=== PATIENT | male | born 1960 | race Caucasian/White ===

== ENCOUNTER 2018-10-29 07:37 | Emergency (ER) | payer BC ==
[2018-10-29 07:54] VITALS: BP 145/76
--- NOTE | 2018-10-29 08:07 | UC ---
Skin Complaint HPI - HPI Summary HPI Summary: 58 yo male presents with bee stings. He tells me that on 10/25 he was working outdoors and was stung in the left arm, upper chest, and neck several times by a wasp. He took benadryl and applied ice to the areas. All of them have resolved except for one area on his left forearm which is red and swollen still. Warm to touch with itching and slight pain. Denies hx of allergic rxn to bees. No facial or throat swelling. - History of Current Complaint Chief Complaint: UCSkin Time Seen by Provider: 10/29/18 08:07 Stated Complaint: WESP STING LT FORE ARM Hx Obtained From: Patient Onset/Duration: Sudden Onset Onset Severity: Mild Current Severity: Mild Pain Intensity: 3 Pain Scale Used: 0-10 Numeric - Allergy/Home Medications Allergies/Adverse Reactions: Allergies Allergy/AdvReac Type Severity Reaction Status Date / Time No Known Allergies Allergy Verified 10/29/18 07:54 PMH/Surg Hx/FS Hx/Imm Hx - Additional Past Medical History Additional PMH: None - Surgical History Surgical History: None - Family History Known Family History: Positive: Non-Contributory - Social History Occupation: Employed Full-time Lives: With Family Alcohol Use: Occasionally Substance Use Type: None Smoking Status (MU): Never Smoked Tobacco Review of Systems All Other Systems Reviewed And Are Negative: Yes Constitutional: Positive: Negative Skin: Positive: Other - bee sting left arm Respiratory: Positive: Negative Cardiovascular: Positive: Negative Neurovascular: Positive: Negative Neurological: Positive: Negative Psychological: Positive: Negative Physical Exam - Summary Physical Exam Summary: GENERAL: NAD. WDWN. No pain distress. SKIN: LEFT FOREARM: Volar aspect with 3.0cm diameter area of mild erythema, edema, and warmth. No open wounds, streaking, drainage, or abscess. NECK: Supple. Nontender. No lymphadenopathy. CHEST: No accessory muscle use. Breathing comfortably and in no distress. CV: Pulses intact. Cap refill <2seconds NEURO: Alert. PSYCH: Age appropriate behavior. Triage Information Reviewed: Yes Vital Signs: Initial Vital Signs Temp 97.7 F 10/29/18 07:49 Pulse 88 10/29/18 07:49 Resp 20 10/29/18 07:49 BP 145/76 10/29/18 07:49 Pulse Ox 98 10/29/18 07:49 Vital Signs Reviewed: Yes Course/Dx - Course Course Of Treatment: Suspect cellulitis s/p bee sting. Will treat with keflex - Diagnoses Provider Diagnosis: Cellulitis Discharge - Sign-Out/Discharge Documenting (check all that apply): Patient Departure All imaging exams completed and their final reports reviewed: No Studies - Discharge Plan Condition: Stable Disposition: HOME Prescriptions: Cephalexin CAP* [Keflex CAP*] 500 mg PO TID #15 cap Patient Education Materials: Insect Bite or Sting (ED) Referrals: Nicolás Tariq MD [Primary Care Provider] - Additional Instructions: If you develop a fever, shortness of breath, chest pain, new or worsening symptoms - please call your PCP or go to the ED immediately. Your blood pressure was slightly elevated at todays visit. Please see your primary provider within 4 weeks for recheck and re-evaluation. - Billing Disposition and Condition Condition: STABLE Disposition: Home
== END 2018-10-29 08:19 | disposition home or self-care (01) ==
LOC: UCEAST 07:37
DX: L03.114 Cellulitis of left upper limb (principal)
CPT/HCPCS: 99212; G0463

== ENCOUNTER 2018-11-14 10:25 | Observation (INO) | payer BC ==
[2018-11-14 11:18] LABS: ABS Basophils 0.1 10^3/ul (0-0.2); ABS Lymphocytes 0.7 10^3/ul (1.0-4.8); ABS Monocytes 1.1 10^3/ul (0-0.8); ABS Neutrophils 11.3 10^3/ul (1.5-7.7); Eosinophil % 0.1 %; Hematocrit 43 % (42-52); Hemoglobin 14.4 g/dL (14.0-18.0); Mean Corpuscular HGB Conc 34 g/dL (31-36); Mean Corpuscular Hemoglobin 30 pg (27-31); Mean Corpuscular Volume 89 fL (80-94); Nucleated Red Blood Cells % 0.1; Platelet Count 271 10^3/uL (150-450); Red Cell Distribution Width 13 % (10-15); White Blood Count 13.1 10^3/uL (3.5-10.8)
[2018-11-14 11:24] LABS: INR 1.05 (0.82-1.09)
[2018-11-14 11:37] LABS: Albumin 4.4 g/dL (3.2-5.2); Albumin/Globulin Ratio 1.4 (1-3); BUN/Creatinine Ratio 19.8 (8-20); Calcium 9.2 mg/dL (8.6-10.3); EGFR African American 104.3 (>60); EGFR Non-African American 86.2 (>60); Globulin 3.2 g/dL (2-4); Total Bilirubin 0.9 mg/dL (0.2-1.0); Total Protein 7.6 g/dL (6.4-8.9)
--- NOTE | 2018-11-14 11:50 | ED ---
HPI Chest Pain - HPI Summary HPI Summary: A 58 y/o male presents to [facility] with a chief complaint of throbbing chest pain when taking deep breaths after working out yesterday. He rates his pain as a 2/ 10 laying down and a 4/10 when taking a deep breath. He says that he only has the pain when taking a deep breath or bending over. He denies any fevers. He denies a Hx of blood clots. He denies any smoking or drug use but reports drinking 1 beer per week. He denies a Hx of DM or HTN. He says that his cholesterol is on the edge of being high but he does not take any medications for it. He says that his father passed due to cardiac complications when he was 68 y/o. - History of Current Complaint Chief Complaint: EDChestPainROMI Time Seen by Provider: 11/14/18 11:41 Hx Obtained From: Patient Onset/Duration: Started Days Ago, Still Present Timing: Intermittent - when taking deep breaths Initial Severity: Mild Current Severity: Mild Pain Intensity: 2 Pain Scale Used: 0-10 Numeric Chest Pain Location: Diffuse Chest Pain Radiates: No Character: Other: - throbbing Aggravating Factor(s): Deep Breaths, Other: - bending over Alleviating Factor(s): Nothing Associated Signs and Symptoms: Negative: Fever - Allergy/Home Medications Allergies/Adverse Reactions: Allergies Allergy/AdvReac Type Severity Reaction Status Date / Time No Known Allergies Allergy Verified 11/14/18 12:04 Home Medications: Home Medications Aspirin [Aspirin EC] 81 mg PO DAILY PRN 11/14/18 [History Confirmed 11/14/18] PMH/Surg Hx/FS Hx/Imm Hx Endocrine/Hematology History: Denies: Hx Diabetes, Hx Thyroid Disease Cardiovascular History: Denies: Hx Hypertension Respiratory History: Denies: Hx Asthma, Hx Chronic Obstructive Pulmonary Disease (COPD) GI History: Denies: Hx Ulcer Infectious Disease History: No Infectious Disease History: Reports: Hx Shingles Denies: Hx Hepatitis, Hx Human Immunodeficiency Virus (HIV), Traveled Outside the [place] in Last 30 Days - Family History Known Family History: Positive: Non-Contributory - Social History Alcohol Use: Occasionally Substance Use Type: Reports: None Smoking Status (MU): Never Smoked Tobacco Review of Systems Negative: Fever Positive: Chest Pain All Other Systems Reviewed And Are Negative: Yes Physical Exam - Summary Physical Exam Summary: GENERAL: Patient is a well-developed and nourished M who is lying comfortable in the stretcher. Patient is not in any acute respiratory distress. HEAD AND FACE: Normocephalic EYES: PERRLA, EOMI x 2. EARS: Hearing grossly intact. MOUTH: Oropharynx within normal limits. NECK: Supple, trachea is midline, no adenopathy, no JVD, no carotid bruit. CHEST: Symmetric, no tenderness at palpation LUNGS: Clear to auscultation bilaterally. No wheezing or crackles. CVS: Regular rate and rhythm, S1 and S2 present, no murmurs or gallops appreciated. ABDOMEN: Soft, non-tender. Bowel sounds are normal. No abnormal abdominal pulsations. EXTREMITIES: Full ROM in all major joints, no edema, no cyanosis or clubbing. NEURO: Alert and oriented x 3. No acute neurological deficits. Speech is normal and follows commands. SKIN: Dry and warm Triage Information Reviewed: Yes Vital Signs On Initial Exam: Initial Vitals Temp Pulse Resp BP Pulse Ox 98.2 F 106 16 136/87 100 11/14/18 10:44 11/14/18 10:44 11/14/18 10:44 11/14/18 10:44 11/14/18 10:44 Vital Signs Reviewed: Yes Diagnostics - Vital Signs Vital Signs Temp Pulse Resp BP Pulse Ox 11/14/18 10:44 98.2 F 106 16 136/87 100 - Laboratory Lab Results: Lab Results 11/14/18 11/14/18 11/14/18 Range/Units 11:03 11:03 11:03 WBC 13.1 H (3.5-10.8) 10^3/uL RBC 4.80 (4.18-5.48) 10^6 /uL Hgb 14.4 (14.0-18.0) g/dL Hct 43 (42-52) % MCV 89 (80-94) fL MCH 30 (27-31) pg MCHC 34 (31-36) g/dL RDW 13 (10-15) % Plt Count 271 (150-450) 10^3/uL MPV 8.0 (7.4-10.4) fL Neut % (Auto) 86.0 % Lymph % (Auto) 5.0 % Mcminn % (Auto) 8.3 % Eos % (Auto) 0.1 % Baso % (Auto) 0.6 % Absolute Neuts (auto) 11.3 H (1.5-7.7) 10^3/ul Absolute Lymphs (auto) 0.7 L (1.0-4.8) 10^3/ul Absolute Monos (auto) 1.1 H (0-0.8) 10^3/ul Absolute Eos (auto) 0.0 (0-0.6) 10^3/ul Absolute Basos (auto) 0.1 (0-0.2) 10^3/ul Absolute Nucleated RBC 0.0 10^3/ul Nucleated RBC % 0.1 INR (Anticoag Therapy) 1.05 (0.82-1.09) Sodium 138 (135-145) mmol/L Potassium 4.0 (3.5-5.0) mmol/L Chloride 106 (101-111) mmol/L Carbon Dioxide 25 (22-32) mmol/L Anion Gap 7 (2-11) mmol/L BUN 18 (6-24) mg/dL Creatinine 0.91 (0.67-1.17) mg/dL Est GFR ( Amer) 104.3 (>60) Est GFR (Non-Af Amer) 86.2 (>60) BUN/Creatinine Ratio 19.8 (8-20) Glucose 105 H (70-100) mg/dL Calcium 9.2 (8.6-10.3) mg/dL Total Bilirubin 0.90 (0.2-1.0) mg/dL AST 17 (13-39) U/L ALT 18 (7-52) U/L Alkaline Phosphatase 69 (34-104) U/L Troponin I 0.00 (<0.04) ng/mL Total Protein 7.6 (6.4-8.9) g/dL Albumin 4.4 (3.2-5.2) g/dL Globulin 3.2 (2-4) g/dL Albumin/Globulin Ratio 1.4 (1-3) Result Diagrams: 11/14/18 11:03 11/14/18 11:03 Lab Statement: Any lab studies that have been ordered have been reviewed, and results considered in the medical decision making process. - Radiology CXR Radiology Interpretation Completed By: Radiologist Summary of Radiographic Findings: NO EVIDENCE FOR ACTIVE CARDIOPULMONARY DISEASE. ED physician has reviewed this imaging report. - EKG 10:30 Cardiac Rate: Tachycardia - 105 bpm EKG Rhythm: Sinus Tachycardia Summary of EKG Findings: EKG at 10:30 showed sinus tachycardia at 105 bpm, normal axis. Re-Evaluation - Re-Evaluation First Eval Re-Evaluation Time: 13:26 Change: Unchanged Comment: Discussed results and plan. Chest Pain Course/Dx - Course Course Of Treatment: A 58 y/o male presents to [facility] with a chief complaint of throbbing chest pain when taking deep breaths after working out yesterday. The physical exam was unremarkable. EKG at 10:30 showed sinus tachycardia at 105 bpm , normal axis. Blood work and chemistries obtained and are WNL. CXR impression: NO EVIDENCE FOR ACTIVE CARDIOPULMONARY DISEASE. In the ED course the patient was given Aspirin PO, NTG SL and Sodium Chloride IV. The patient will be admitted. Case discussed with hospitalist, Dr. Valdivia. I discussed results with patient. The patient agrees with this plan. - Diagnoses Provider Diagnoses: Chest pain - Provider Notifications Discussed Care Of Patient With: Elda Valdivia Time Discussed With Above Provider: 13:59 Instructed by Provider To: Admit As Inpatient Discharge - Sign-Out/Discharge Documenting (check all that apply): Patient Departure - admit Patient Received Moderate/Deep Sedation with Procedure: No - Discharge Plan Condition: Fair Disposition: ADMITTED TO [facility] - Billing Disposition and Condition Condition: FAIR Disposition: Admitted to [facility] - Attestation Statements Document Initiated by Baldoibe: Yes Documenting Scribe: Eric Mcmahon Provider For Whom Javon is Documenting (Include Credential): Jim Laurent MD Scribe Attestation: Eric Gallardo, scribed for Jim Laurent MD on 11/14/18 at 1616. Scribe Documentation Reviewed: Yes Provider Attestation: The documentation as recorded by the Eric peralta accurately reflects the service I personally performed and the decisions made by me, Nini Laurent MD Status of Scribe Document: Viewed
[2018-11-14 11:57] LABS: Activated Partial Thrombo Time 33.2 seconds (26.0-38.0)
[2018-11-14 12:07] LABS: C Reactive Protein 7.59 mg/L (<8.01)
[2018-11-14] MEDS ORDERED: Nitroglycerin TAB 0.4 MG* 0.4 MG TAB SL ONE (13:16)
[2018-11-14] MEDS ORDERED: NS 0.9% 1000 ML** 1,000 ML IV ONE (13:42)
[2018-11-14] MEDS ORDERED: Aspirin 81 mg CHEW TAB* 81 MG TAB.CHEW PO ONE (13:56)
[2018-11-14] MEDS ORDERED: Acetaminophen TAB* 325 MG PO PRN (15:22)
[2018-11-14 16:11] LABS: TSH (Thyroid Stimulating Horm) 0.64 mcIU/mL (0.34-5.60)
--- NOTE | 2018-11-14 18:08 | HP ---
CC: Dr. Nicloás Tariq * HISTORY AND PHYSICAL: DATE OF ADMISSION: 11/14/18 PRIMARY CARE PROVIDER: Nicolás Tariq MD ATTENDING PHYSICIAN: Elda Villagran MD * (dictated by KATHERINE Mahmood) CHIEF COMPLAINT: Chest pain. HISTORY OF PRESENT ILLNESS: Mr. Yen is a 58-year-old male with no past medical history who presented to the ER today with complaints of chest pain. He states that he went to the gym last night, did weightlifting that involved bench pressing, triceps, etc., and then did 10 minutes of cardio on an indoor bicycle. He went home and later in the evening started to have a middle to left upper chest pain. He states that the pain is dull and constant except with deep breathing or bending forward when the pain becomes throbbing. He went to bed and woke and continues to have this pain. He denies diaphoresis, shortness of breath. He denies cough, fever, chills, sweats. He denies abdominal pain, nausea, vomiting, diarrhea, constipation. He denies changes in urination. He denies numbness and tingling in the extremities. He denies vision changes, headaches, dizziness, lightheadedness, presyncope, syncope. He notes that he was performing upper extremity weightlifting prior to the episode, but had no chest pain with exertion. He also notes that he was shoveling dirt on Monday. He currently rates his pain as 4/10. In the ER, the patient received a full workup, which included laboratory data showing leukocytosis. The patient received an ECG, which showed sinus tachycardia with a rate of 105, no ST changes. Chest x-ray was negative for cardiopulmonary disease. The patient received nitro in the ER. He notes that his pain was relieved for approximately 10 minutes with nitro, but that it caused dizziness and tingling in bilateral hands. Hospitalist team was asked to evaluate the patient for admission. PAST MEDICAL HISTORY: None. The patient's last physical was with his primary care, Dr. Tariq approximately 1 year ago. He has a followup appointment scheduled for November of this year. PAST SURGICAL HISTORY: None. HOME MEDICATIONS: Tylenol PM p.r.n. DRUG ALLERGIES: No known drug allergies. FAMILY HISTORY: Father at the age of 66 from complications of valvular disease, heart disease; the patient is unsure of the specifics. Mother has thyroid disease. Paternal grandmother had diabetes. No family history of CVA or cancer. SOCIAL HISTORY: The patient denies current or former use of tobacco. He drinks 1 to 2 drinks per week. He does not use any illicit drugs. 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 He is with 2 children who he lives with. He is relatively active exercising approximately 1-1/2 hours per week, not including staying active with his children. In the event that he is unable to make his own medical decision, he has appointed his to be his surrogate decision maker. REVIEW OF SYSTEMS: A 10-point review of systems has been performed and all the pertinent positives and negatives are in the HPI. All other systems are negative. PHYSICAL EXAMINATION GENERAL: Mr. Yen is a well developed, well nourished, middle-aged male who appears younger than his stated age. He is healthy, normal weight. He is in no acute distress. VITAL SIGNS: Temperature 98.2 temporal, heart rate 97, respiratory rate 20, oxygen saturation 98% on room air, blood pressure 126/81. HEENT: Visual esparza grossly intact. PERRL, EOMI, nonicteric sclerae. Hearing grossly intact. Oral mucous membranes are moist and without lesions. Tongue is at midline. RESPIRATORY: Symmetrical chest expansion without use of accessory muscles. LUNGS: Clear to auscultation bilaterally without rhonchi, wheezes, or rales. Chest wall is nontender to palpation. There is no digital clubbing or cyanosis. CARDIOVASCULAR: Regular rate and rhythm with S1, S2 present without murmurs, rubs, clicks, or gallops. There is no JVD. There is no peripheral edema. Radial and pedal pulses are palpable. ABDOMEN: Flat, bowel sounds in all quadrants. The abdomen is soft without tenderness to palpation. There is no hepatosplenomegaly. MUSCULOSKELETAL: Full range of motion without pain or deformities. NEURO: The patient is awake. He is alert and oriented x3 with no focal neurological deficits. He is able to move all of his extremities with a motor strength of 5/5 in upper and lower extremities. DIAGNOSTIC STUDIES/LAB DATA: WBC 13.1. Glucose 105. Troponin 0.00 x2. ECG: Rate 105, sinus tachycardia, no ST changes. Chest x-ray, impression: No evidence for active cardiopulmonary disease. ASSESSMENT AND PLAN: Mr. Yen is a 58-year-old male with no past medical history who presented to the ER today with complaints of chest pain. The patient will be admitted observation for: 1. Chest pain, rule out acute coronary syndrome. The patient has negative troponins x2. There are no acute ST changes on ECG. He continues to have chest pain that is worsened with deep breathing and bending over. He is an active male whose chest pain developed shortly after upper body weightlifting. This sounds like atypical chest pain. It appears to be musculoskeletal in nature, although there is no tenderness to palpation. Due to the concerning family history of heart disease where his father at the age of 66, we will pursue cardiac workup. The patient has taken aspirin today already. He will continue aspirin 81 mg in the morning. Troponins will continue to be trended. Risk stratification will be pursued with hemoglobin A1c and lipid panel. TSH has been ordered. Stress test has been ordered for the a.m. Meanwhile, Tylenol has been ordered p.r.n. pain. 2. FEN. Heart healthy diet with n.p.o. after midnight. There were no IV fluids. 3. DVT prophylaxis. According to the DVT Risk Assessment, the patient's scores 1 placing him at low risk. Ambulation, ad ines. 4. Code status. Full code. TIME SPENT: Approximately 45 minutes was spent on this admission, greater than half of that time was spent with the patient and his obtaining history, performing physical, and reviewing the plan of care. The case has been reviewed with my attending, Dr. Villagran, who is in agreement with the plan of care. KATHERINE WOLF [id number]/[facility] #: [id number] SOHA
[2018-11-15 07:00] LABS: HDL Cholesterol 56.4 mg/dL
[2018-11-15] MEDS ORDERED: Aspirin 81 mg CHEW TAB* 81 MG TAB.CHEW PO SCH (09:00)
[2018-11-15 13:00] LABS: Hepatitis C Antibody Negative (Negative)
[2018-11-15] MEDS ORDERED: Ibuprofen TAB* 600 MG PO ONE (13:05)
[2018-11-15 13:45] LABS: C Reactive Protein 63.35 mg/L (<8.01)
[2018-11-15] MEDS ORDERED: Colchicine* 0.6 MG TAB PO ONE (16:21)
[2018-11-15 16:44] VITALS: BP 143/79
--- NOTE | 2018-11-15 18:41 | DS ---
Resident Discharge Summary Discharge Summary: Date of Admission: 11/14/18 Date of Discharge: 11/15/2016 Admitting MD: Elda Valdivia MD Attending MD: Irish Pineda MD Primary Care Physician: Nicolás Tariq MD Home Medications Colchicine [Mitigare] 0.6 mg PO DAILY #30 cap 11/15/18 [Rx] Ibuprofen 600 mg PO TID #90 tablet 11/15/18 [Rx] Disposition: Home Condition: Good Primary Diagnosis: 1. Acute Pericarditis(viral). Diagnostic Imaging: Stress Echo: Pending by the time of discharge. Verbal discussion with mounter flutes and piccolos randolph; Normal. Pertinent Laboratory Results: WBC: 13.1 with neutrophilic predominance HbA1c: 5.7 CRP: 63.35 Troponin: Negative for 3 times. Hospital Course: Mr. Yen is a 58-year-old male, otherwise healthy who presented to the ER with complaints of chest pain. He states that he went to the gym last night, did weightlifting that involved bench pressing, triceps, etc., and then did 10 minutes of cardio on an indoor bicycle. He went home and later in the evening started to have a middle to left upper chest pain. He states that the pain is dull and constant except with deep breathing or bending forward when the pain becomes throbbing. He went to bed and woke and continues to have this pain. He denies diaphoresis, shortness of breath. He denies cough, fever, chills. He denies abdominal pain, nausea, vomiting, diarrhea, constipation. He notes that he was performing upper extremity weightlifting prior to the episode, but had no chest pain with exertion. He also notes that he was shoveling dirt on Monday. In the ER, the patient received a full workup, which included laboratory data showing leukocytosis. ECG showed sinus tachycardia with a rate of 105, no ST changes. Chest x-ray was negative for cardiopulmonary disease. The patient received nitro, which relieved his pain for approximately 10 minutes. The patient had 3 negative troponins. While admitted, patient reported persistent mild pain that was worse on deepest inhalation. He was seen and evaluated by cardiology, who was most concerned for pericarditis given his evolving EKG changes, elevated WBC, CRP, and positional nature of the patient's chest pain. He was started on colchicine and ibuprofen. He was educated on the importance of avoiding strenuous activity, and discharged to follow up in cardiology clinic. By the time of discharge patient was out of the pain. Follow Up Instructions: Activity as tolerated. Avoid strenuous activity until symptoms resolve. Eat healthy diet low in processed food. Please stop taking aspirin while on treatment for pericarditis. You may resume aspirin when you finish taking ibuprofen. Taking these medications together increases your risk of stomach bleeding. You will need to taper your dose of ibuprofen when your symptoms resolve. Follow up with your mounter flutes and piccolos to determine dosing. Take ibuprofen with food. If you begin experiencing heart burn, contact your provider immediately as you may need an acid lowering medication while on treatment, or you may need alternative treatments. F/U with PCP in 1-2 weeks. F/U with mounter flutes and piccolos in 1 week. In case of an emergency or after clinic hours, please go to your nearest Emergency Department. You may also call the [facility] bore mill operator for plastic at .
--- NOTE | 2018-11-15 18:44 | CONS ---
CC: Dr. Tariq * CARDIOLOGY CONSULTATION: DATE OF CONSULT: 11/15/18 CONSULTING PHYSICIAN: Irish Pineda MD REASON FOR EVALUATION: Chest pain. HISTORY OF PRESENT ILLNESS: This is a very pleasant 58-year-old gentleman who was in his usual state of health until this weekend. He said he did some unusual yard work on Monday, but did not have any chest pain with that and then on Monday was doing some bench presses and weights and noticed that he was little sore in his chest afterwards, it was worse with inspiration, not really tender to palpation. He also noted that he was tired Monday night and Monday and felt like he needed to rest and sleep. He also had some diarrhea on Monday. Because of persistent pain on Monday, he came to the emergency room on Monday. He was admitted, he continued to have pain, worse with inspiration, somewhat better lying down. He was noted to have an elevation of his temperature to 101.4 at 1614 yesterday and is afebrile this morning. His troponins were negative, but he had a mildly elevated CRP which is increased today. I was asked to see him, perform a stress test because of the chest pain. He continues to have low-grade mild pain with inspiration when he was seen for consultation. He denies orthopnea. No peripheral edema. He does not exercise regularly, but does do 20 minutes on a bike once a week or so. He denies tobacco use, hypertension, hyperlipidemia, or diabetes. He says his father of valvular heart disease. He has 1 to 2 beers on the weekend. 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 MEDICATIONS: He takes no medications. ALLERGIES: He has no allergies. PHYSICAL EXAM: He is a well-developed, well-nourished gentleman, in no apparent distress. No significant JVD. Cardiac Exam: S1, S2 without murmurs, gallops, or rubs. Chest was clear. Extremities: No edema. DIAGNOSTIC STUDIES/LAB DATA: Labs remarkable for elevated CRP today in the 60s. His EKG initially was normal sinus rhythm. Earlier today he showed some ST elevations in the right precordial leads and this afternoon, he had more diffuse gentle ST elevations and ND elevation in aVR. He had a stress echo today, which revealed normal wall motion, no pericardial effusion. He was exercised on a modified Enmanuel protocol and I was abbreviated due to concerns about his possible pericarditis. He achieved near maximal hear rate. He had no significant EKG changes, in fact the ST seemed to normalize somewhat and his echo revealed no evidence of wall motion abnormalities at rest or with stress and he had a normal hyperdynamic response to exercise. IMPRESSION: My impression is that the patient appears to have syndrome consistent with pericarditis. Given low risk stress test and constellation of symptoms, I would recommend a treatment for pericarditis. I advised him to rest for the next 2 weeks until his symptoms resolve. He is told to avoid vigorous exertion. He is to begin protocol of Motrin tapering and colchicine. I discussed the case with Dr. Pineda, who understands the plan and will discuss discharge instructions with him. He requested to see me in the office in followup. I will be happy to see him. I gave him the contact information. [id number]/[facility] #: [id number] SOHA
== END 2018-11-15 18:40 | disposition home or self-care (01) ==
LOC: ED 10:25 → MEDTELE 15:22
PROVIDERS: ADMIT Internal Medicine; ATTEND Internal Medicine
DX: I30.9 Acute pericarditis, unspecified (principal); R07.9 Chest pain, unspecified; Z86.19 Personal history of other infectious and parasitic diseases; Z79.82 Long term (current) use of aspirin; R94.31 Abnormal electrocardiogram [ECG] [EKG]; Z87.891 Personal history of nicotine dependence; R00.0 Tachycardia, unspecified
CPT/HCPCS: 36415; 71046; 80053; 80061; 83036; 83880; 84443; 84484; 85025; 85379; 85610; 85652; 85730; 86140; 86803; 93005; 93351; 96360; 99284; A9270-GY; G0378

== ENCOUNTER → 2019-02-11 11:24 | Day surgery (SDC) | payer BC ==
[~2019-02-11 11:24] MED LIST: Bacitracin OINTMENT* 0.5% 0.5 oz TUBE ONE; Buffered Lidocaine 1% SYRIN* 1 ML/SYRINGE INTRADERM ONE; Bupivacaine 0.25% SDV PF* 10 ML VIAL INJ ONE; Dexamethasone IV* 4 MG/ML 1 ML (4 MG) ONE; Famotidine IV* 10 MG/ML 2 ML (20 mg) IV ONE; Famotidine IV* 10 MG/ML 2 ML (20 mg) ONE; Gelfoam 12-7 ADSORBABL SPONGE* 1 EA SPONGE ONE; KETAMINE HCL* 50 MG/ML 10 ML VIAL ONE; Ketorolac INJ* 30 MG/ML 1 ML VIAL ONE; Lactated Ringers 1000 ML Bag* 1,000 ML IV SCH; Lidocaine 2% PF * 5 ML VIAL ONE; Midazolam* 1 MG/ML 10 ML VIAL (10 MG) ONE; Naloxone* 0.4 MG/ML 1 ML VIAL IV PRN; Onabotulinimtoxina 100 UNITS* VIAL IM ONE; Ondansetron INJ* 2 MG/ML VIAL IV PRN; Ondansetron INJ* 2 MG/ML VIAL ONE; Propofol* 10 MG/ML 20 ML BTL ONE; ceFOXitin 2 GM IVPREMIX* 2 GM/50 ML BAG ONE; fentaNYL* 50 MCG/ML 2 ML VIAL (100 MCG VIAL) IV PRN; fentaNYL* 50 MCG/ML 2 ML VIAL (100 MCG VIAL) ONE; oxyCODONE/Acetamin 5/325 MG* TAB ONE; oxyCODONE/Acetamin 5/325 MG* TAB PO PRN
[2019-02-11 15:19] VITALS: BP 135/80
--- NOTE | 2019-02-11 21:16 | OP ---
DATE OF OPERATION: 02/11/19 - [facility] DATE OF : 64 SURGEON: Sree Azar MD. PRE-OP DIAGNOSIS: Anal fissure. POST-OP DIAGNOSIS: Anal fissure. OPERATIVE PROCEDURE: Rectal examination under anesthesia, lateral internal sphincterotomy right side. INDICATIONS: Pain and seizure risk including but not limited to, bleeding infection, persistent fissure, temporary or permanent incontinence to gas or stool, persistent discomfort all explained to the patient, he seemed to understand and agreed to the procedure and all questions were answered. DESCRIPTION OF PROCEDURE: The patient was taken to the operating room and placed in the prone jackknife position. Sedation was given by the anesthesiologist. A time-out was performed indicating correct patient and correct procedure. The area was prepped and draped in sterile fashion. Digital rectal examination revealed normal tone, no masses. The retractor was placed in the rectum and the distal rectal mucosa was evaluated in all 4 quadrants, no mass or abnormalities were noted other than a fissure just to the right of midline posteriorly. Skin was anesthetized with local over the intersphincteric groove and an incision was made and a small segment of the internal sphincter muscle was isolated with a hemostat and divided using Bovie cautery. This was less than 10% of the muscle. The area was irrigated. EBL minimal. Hemostasis was intact. Antibiotic ointment was applied with some Gelfoam empirically, and a curled/rolled gauze was placed over this area and taped in place. He tolerated the procedure well. [id number] #: [id number] [facility]
== END | disposition home or self-care (01) ==
LOC: OR 11:24
PROVIDERS: ATTEND Surgery
DX: K60.2 Anal fissure, unspecified (principal)
CPT/HCPCS: A9270-GY; J0585; J0694; J1100; J1885; J2250; J2405; J2704; J3010; J3490